=== PATIENT | male | born 1995 | race Caucasian/White ===

== ENCOUNTER 2017-01-26 19:43 | Emergency (ER) | payer OTHER ==
[2017-01-26] MEDS ORDERED: LORazepam 1 MG TAB PO ONE ×2 (19:56→21:04)
[2017-01-26] MEDS ORDERED: LORazepam 1 MG TAB ONE (19:56)
--- NOTE | 2017-01-26 20:04 | EDPHY ---
H & P Time Seen by Provider: 01/26/17 19:48 HPI/ROS: CHIEF COMPLAINT: Benzodiazepine withdrawal HISTORY OF PRESENT ILLNESS: 21-year-old male presents to the emergency department by private vehicle with a friend complaining of acute withdrawal symptoms. The patient states that he has been using Etizolam for his PTSD. He states that he takes a large amount of this medication. He has not been abusing this medicine. He states that he just did not want to do this anymore and he flushed all the medication down the toilet 24 hours ago. He now feels extremely anxious and feels like he is having a panic attack. He denies pain in his chest. He denies neck or back pain. Denies any reported trauma. REVIEW OF SYSTEMS: Constitutional: No fever, no chills. Eyes: No double or blurry vision. ENT: No sore throat. Respiratory: No cough, no shortness of breath. Cardiac: No chest pain. Gastrointestinal: No abdominal pain, vomiting or diarrhea. Genitourinary: No dysuria. Musculoskeletal: No neck or back pain. Skin: No rashes. Neurological: No headache. Past Medical/Surgical History: PTSD, anxiety Social History: Single Smoking Status: Never smoked Physical Exam: General Appearance: Alert, extremely anxious. Refusing to put gown on. Refusing to lie back in the bed. Friend at bedside. Eyes: Pupils equal and round. Extraocular motions are all intact. ENT: Mouth: Mucous membranes moist. Respiratory: No wheezing, rhonchi, or rales, lungs are clear to auscultation. Cardiovascular: Regular rate and rhythm. Tachycardic. Gastrointestinal: Abdomen is soft and nontender, no masses, no rebound or guarding, bowel sounds normal. Neurological: Alert and oriented x 3, cranial nerves II through XII grossly intact Skin: Warm and dry, no rashes. Musculoskeletal: Nontender to palpate along the cervical, thoracic or lumbar spine. Neck is supple. Extremities: Full range of motion and no peripheral edema. Psychiatric: Patient is oriented X 3, there is no agitation. Constitutional: Initial Vital Signs Temperature (C) 36.8 C 01/26/17 19:45 Heart Rate 130 H 01/26/17 19:45 Respiratory Rate 20 01/26/17 19:45 Blood Pressure 152/68 H 01/26/17 19:45 O2 Sat (%) 95 04/19/17 19:45 O2 Delivery Mode Room Air Allergies/Adverse Reactions: No Known Allergies Allergy (Unverified 01/26/17 19:47) Home Medications: Medication Instructions Recorded Diazepam 5 mg PO TID PRN #10 tab 01/26/17 Medical Decision Making ED Course/Re-evaluation: 21-year-old male presents to the emergency department extremely anxious and complaining of withdrawing from his Etizolam. The patient refused blood draw. He refused IV fluids. He refused any blood work. He is drinking water currently. He was given 2 mg of oral Ativan. The patient will be monitored in the emergency department. He was kept on a director of cardiac cath lab. EKG reveals sinus tachycardia without any other arrhythmia. Patient was monitored for over 3 hours in the emergency department. Again the patient refused IV fluids. His heart rate came down into the 90s after the medication and him drinking some water. The patient tells me that he has been taking the Etizolam for several months. I explained that he is at great risk for developing a seizure given the abrupt withdrawal from this medication. The patient will be discharged with Valium per his request and was encouraged to follow up with primary care provider tomorrow to recheck and to discuss possible slow taper of benzodiazepines. The patient understands that he should not be driving in a car. He should have somebody watch him closely and return if he a develops seizure or any other concerns. Differential Diagnosis: Including but not limited to substance abuse, withdrawal, electrolyte abnormality, arrhythmia - Data Points Medications Given: Discontinued Medications Diazepam (Valium 5 Mg Prepack#4) 1 btl TAKEHOME EDNOW ONE Stop: 01/26/17 22:40 Last Admin: 01/26/17 22:46 Dose: 1 btl Lorazepam (Ativan) 2 mg PO EDNOW ONE Stop: 01/26/17 19:57 Last Admin: 01/26/17 19:58 Dose: 2 mg Lorazepam (Ativan) 1 mg PO EDNOW ONE Stop: 01/26/17 21:05 Last Admin: 01/26/17 21:07 Dose: 1 mg Departure - Departure Disposition: Home, Routine, Self-Care Clinical Impression: Anxiety Benzodiazepine withdrawal Qualifiers: Complication of substance-induced condition: uncomplicated Qualified Code(s): F13.230 - Sedative, hypnotic or anxiolytic dependence with withdrawal, uncomplicated Condition: Good Instructions: Diazepam (By mouth), Generalized Anxiety Disorder (ED) Additional Instructions: Diazepam as needed for symptoms of withdrawal and anxiety. Follow up with [facility] tomorrow to recheck. You should not withdrawal abruptly from benzodiazepines. You are at great risk for seizure. You should not drive a car. Referrals: [facility],. [Clinic] - As per Instructions Prescriptions: Diazepam 5 mg PO TID PRN #10 tab PRN Reason: Spasms
--- NOTE | 2017-01-26 20:19 | CPEKG ---
Heart Rate: 129 RR Interval: 465 P-R Interval: 140 QRSD Interval: 90 QT Interval: 300 QTC Interval: 440 P [place]: 74 QRS [place]: 77 T Wave [place]: 10 EKG Severity - BORDERLINE ECG - EKG Impression: SINUS TACHYCARDIA EKG Impression: BORDERLINE Q WAVES IN INFERIOR LEADS EKG Impression: INFERIOR Q WAVES, PROBABLY NORMAL VARIATION Electronically Signed By: Jay Jay Skinner 27-Jan-2017 14:23:00
[2017-01-26 21:13] VITALS: PULSE 104
[2017-01-26] MEDS ORDERED: DIAZEPAM 5 MG PREPACK#4 BTL TAKEHOME ONE (22:39)
[2017-01-26 22:48] VITALS: BP 130/83; RESP 20; TEMP 98.6; O2SAT 97
== END 2017-01-26 22:48 | disposition home or self-care (01) ==
DX: F13.230 Sedative, hypnotic or anxiolytic dependence with withdrawal, uncomplicated (principal); F41.9 Anxiety disorder, unspecified

== ENCOUNTER 2017-02-03 21:44 | Emergency (ER) | payer OTHER ==
[2017-02-03 21:59] VITALS: TEMP 98.8
--- NOTE | 2017-02-04 00:19 | EDPHY ---
Mental Health General Smoking Status: Never smoked Time Patient Placed on Detainer: 23:00 Time of Transfer of Care: 01:[address] To [address]:: Aayush Narrative: CHIEF COMPLAINT: Anxiety, Valium overdose HISTORY OF PRESENT ILLNESS: 21-year-old male presents emergency department by ambulance after taking 50 mg of Valium during a panic attack tonight between 6: 00 p.m. an 8:00 p.m.. Patient states that he ate 10 mg of THC, he starting having a panic attack and took 10 tablets of his 5mg valium between 8pm-10pm. Patient told his girlfriend and she became worried and called 911. Patient denies suicidal ideations. Patient states he started using benzodiazepines 3 months ago and became addicted. He is working with his primary care doctor on a taper. Patient denies other drug use. REVIEW OF SYSTEMS: A comprehensive 10 point review of systems is otherwise negative aside from elements mentioned in the history of present illness. Physical Exam Gen: Alert and Oriented, NAD HEENT: PERRL, moist mucous membranes NECK: no meningismus CV: Tachycardic rate and regular rhythm PULM: CTAB, no wheezes ABDOMEN: soft, non tender to palpation, BS present BACK: No CVA tenderness NEURO: Neurologically grossly intact EXTREMITIES: normal appearing SKIN: no rash or break in skin on exposed skin PSYCH: answers questions appropriately, no suicidal ideation, homicidal ideation , auditory or visual hallucination. (Zulma Connor) Medical Decision Makin-Pt with continuous sat monitor on. He continues to drop his oxygen saturations to between 86 and 89%. Will continue to monitor. Dr. Looney assumed care of the patient at end of my shift. (Zulma Connor) 0100 care assumed by me pending improvement in patient's sedation. 0250 patient is easily arousable. Oxygen saturations 90% while sleeping. He is up and ambulating department. Will discharge to home. He is tierra for safety. This was not a suicide attempt (Brayan Looney) - Objective Vital Signs: Initial Vital Signs Temperature (C) 37.1 C 02/03/17 21:56 Heart Rate 140 H 02/03/17 21:56 Respiratory Rate 14 02/03/17 21:56 Blood Pressure 136/94 H 02/03/17 21:56 O2 Sat (%) 95 02/03/17 21:56 O2 Delivery Mode Room Air Allergies/Adverse Reactions: No Known Allergies Allergy (Unverified 01/26/17 19:47) Home Medications: Medication Instructions Recorded Diazepam 5 mg PO TID PRN #10 tab 01/26/17 Adderall 20 mg (*) 02/03/17 Clonidine 02/03/17 Departure - Departure Disposition: Home, Routine, Self-Care Clinical Impression: Anxiety Valium overdose Qualifiers: Encounter type: initial encounter Injury intent: accidental or unintentional Qualified Code(s): T42.4X1A - Poisoning by benzodiazepines, accidental ( unintentional), initial encounter Condition: Good Instructions: Benzodiazepine Abuse (ED), Anxiety (ED) Additional Instructions: Follow-up with your primary care doctor on Tuesday. Return to the emergency department for any questions or concerns, take your medications as prescribed. Referrals: [facility] [Other] - As per Instructions
[2017-02-04 02:49] VITALS: BP 112/66; PULSE 88; RESP 12; O2SAT 90
== END 2017-02-04 02:48 | disposition home or self-care (01) ==
LOC: EDUNIT#
DX: F41.9 Anxiety disorder, unspecified (principal); T42.4X1A Poisoning by benzodiazepines, accidental (unintentional), initial encounter

== ENCOUNTER 2017-05-02 18:28 | Emergency (ER) | payer OTHER ==
[2017-05-02 18:42] VITALS: BP 140/78; PULSE 104; RESP 16; TEMP 99.1; O2SAT 95
[2017-05-02] MEDS ORDERED: ONDANSETRON DISINTEGRATING 4 MG TAB PO ONE (19:59)
--- NOTE | 2017-05-02 20:02 | EDPHY ---
H & P Stated Complaint: Girlfriend thinks pt is dehydrated;?overmedicated Time Seen by Provider: 05/02/17 19:57 HPI/ROS: CHIEF COMPLAINT: Dehydration HISTORY OF PRESENT ILLNESS: The patient is a 21-year-old man who is brought in by his girlfriend concerned for dehydration. He states that he went on a Yoo of amphetamines for the last week and today he dose not feel like eating or drinking. He has not vomited. He has not had a fever. He denies abdominal pain. His girlfriend was concerned because he not feel like drinking or eating. He states that he was able to drink a couple of cups of water earlier and keep it down but just does not have a desire to drink more. He does not have dry eyes or dry mouth. REVIEW OF SYSTEMS: Constitutional: denies: chills, fever, recent illness, recent injury EENTM: denies: blurred vision, double vision, nose congestion Respiratory: denies: cough, shortness of breath Cardiac: denies: chest pain, irregular heart rate, lightheadedness, palpitations Gastrointestinal/Abdominal: denies: abdominal pain, diarrhea, nausea, vomiting, blood streaked stools Genitourinary: denies: dysuria, frequency, hematuria, pain Musculoskeletal: denies: joint pain, muscle pain Skin: denies: lesions, rash, jaundice, bruising Neurological: denies: headache, numbness, paresthesia, tingling, dizziness, weakness Hematologic/Lymphatic: denies: blood clots, easy bleeding, easy bruising Immunologic/allergic: denies: HIV/AIDS, transplant EXAM: GENERAL: Well-appearing, well-nourished and in no acute distress. HEAD: Atraumatic, normocephalic. EYES: Pupils equal round and reactive to light, extraocular movements intact, sclera anicteric, conjunctiva are normal. ENT: TMs normal, nares patent, oropharynx clear without exudates. Moist mucous membranes. NECK: Normal range of motion, supple without lymphadenopathy or JVD. LUNGS: Breath sounds clear to auscultation bilaterally and equal. No wheezes rales or rhonchi. HEART: Regular rate and rhythm without murmurs, rubs or gallops. ABDOMEN: Soft, nontender, normoactive bowel sounds. No guarding, no rebound. No masses appreciated. BACK: No CVA tenderness, no spinal tenderness, step-offs or deformities EXTREMITIES: Normal range of motion, no pitting or edema. No clubbing or cyanosis. NEUROLOGICAL: Cranial nerves II through XII grossly intact. Normal speech, normal gait. 5/5 strength, normal movement in all extremities, normal sensation PSYCH: Normal mood, normal affect. SKIN: Warm, dry, normal turgor, no visible rashes or lesions. Source: Patient Exam Limitations: No limitations - Personal History Current Tetanus Diphtheria and Acellular Pertussis (TDAP): Yes - Medical/Surgical History Hx Asthma: No Hx Chronic Respiratory Disease: No Hx Diabetes: No Hx Cardiac Disease: No Hx Renal Disease: No Hx Cirrhosis: No Hx Alcoholism: No Hx HIV/AIDS: No Hx Splenectomy or Spleen Trauma: No Other PMH: adhd. anxiety/psych - Family History Significant Family History: No pertinent family hx - Social History Smoking Status: Never smoked Alcohol Use: None Drug Use: None Constitutional: Initial Vital Signs Temperature (C) 37.3 C 05/02/17 18:39 Heart Rate 104 H 05/02/17 18:39 Respiratory Rate 16 05/02/17 18:39 Blood Pressure 140/78 H 05/02/17 18:39 O2 Sat (%) 95 05/02/17 18:39 O2 Delivery Mode Room Air Allergies/Adverse Reactions: No Known Allergies Allergy (Verified 05/02/17 18:39) Home Medications: Medication Instructions Recorded Dextroamphetamine/Amphetamine 10 mg PO 05/02/17 [Dextroamp-Amphet ER 10 mg Cap] Diazepam [Valium 5 MG (*)] 7.5 mg PO 05/02/17 MIRTAZAPINE [Remeron 7.5 mg] 7.5 mg PO HS 05/02/17 clonIDINE [Catapres (*)] 0.1 mg PO 05/02/17 Medical Decision Making ED Course/Re-evaluation: Patient is well appearing clinically and does not appear dehydrated. States that thinking about drinking water makes and slightly nauseous. I will treat him with Zofran and oral hydration. We will observe. Differential Diagnosis: Partial list of the Differential diagnosis considered include but were not limited to; dehydration, anxiety, withdrawal, overdose and although unlikely based on the history and physical exam, I also considered electrolyte abnormality, arrhythmia, abdominal catastrophe. I discussed these differential diagnoses and the plan with the patient as well as the usual and expected course. The patient understands that the diagnosis is provisional and that in medicine we are not always correct and that further workup is often warranted. Usual and customary warnings were given. All of the patient's questions were answered. The patient was instructed to return to the emergency department should the symptoms at all worsen or return, otherwise to followup with the physician as we discussed. - Data Points Medications Given: Discontinued Medications Ondansetron HCl (Zofran Odt) 4 mg PO EDNOW ONE Stop: 05/02/17 20:00 Last Admin: 05/02/17 20:06 Dose: 4 mg Departure - Departure Disposition: Home, Routine, Self-Care Clinical Impression: Dehydration, Anxiety Condition: Fair Instructions: Dehydration (ED), Anxiety (ED) Referrals: [facility] [Other] - As per Instructions
== END 2017-05-02 20:22 | disposition home or self-care (01) ==
DX: E86.0 Dehydration (principal); F41.9 Anxiety disorder, unspecified

== ENCOUNTER 2017-09-08 22:25 | Emergency (ER) | payer OTHER ==
[2017-09-08 22:30] VITALS: TEMP 98.1
[2017-09-08] MEDS ORDERED: HALOPERIDOL LACT 5 MG/ML INJ IVP ONE (22:47)
[2017-09-08] MEDS ORDERED: NS 1,000 ML IV ONE (22:48)
--- NOTE | 2017-09-08 22:51 | EDPHY ---
H & P Stated Complaint: c/o abd pain/n/v x 30 mins Time Seen by Provider: 09/08/17 22:40 HPI/ROS: Chief Complaint: Abdominal pain, nausea, vomiting HPI: 21-year-old male had the sudden onset of right abdominal pain with associated nausea vomiting and diarrhea 30 min ago. Prior to that he was feeling completely normal. No coffee grounds or blood in his emesis. No dark tarry stools or blood. No fevers or chills. No chest pain or shortness of breath. Has a history of some nausea in the past associated with benzodiazepine withdrawal but has not taken benzodiazepines for about 4 months. Denies any other drug use or ingestions. No recent trauma or injuries. No urinary urgency or frequency. ROS: 10 point Review of Systems is negative except as noted in the HPI. PMH: Denies Social History: No smoking, no alcohol, no recreational drug use Family History: non-contributory Physical Exam: Gen: Awake, Alert, No Distress HEENT: Nose: no rhinorrhea Eyes: PERRLA, EOMI Mouth: Moist mucosa Neck: Supple, no JVD Chest: nontender, lungs clear to auscultation Heart: S1, S2 normal, no murmur Abd: Soft, mild diffuse tenderness, no guarding Back: no CVA tenderness, no midline tenderness Ext: no edema, non-tender Skin: no rash Neuro: CN II-XII intact, Sensation grossly intact, Strength 5/5 in bilateral upper and lower extremities - Medical/Surgical History Hx Asthma: No Hx Chronic Respiratory Disease: No Hx Diabetes: No Hx Cardiac Disease: No Hx Renal Disease: No Hx Cirrhosis: No Hx Alcoholism: No Hx HIV/AIDS: No Hx Splenectomy or Spleen Trauma: No Other PMH: adhd. anxiety/psych - Social History Smoking Status: Never smoked Constitutional: Initial Vital Signs Temperature (C) 36.7 C 09/08/17 22:28 Heart Rate 128 H 09/08/17 22:28 Respiratory Rate 22 H 09/08/17 22:28 Blood Pressure 118/95 H 09/08/17 22:28 O2 Sat (%) 99 09/08/17 22:28 O2 Delivery Mode Room Air Allergies/Adverse Reactions: No Known Allergies Allergy (Verified 09/08/17 22:30) Home Medications: Medication Instructions Recorded Dextroamphetamine/Amphetamine 10 mg PO 05/02/17 [Dextroamp-Amphet ER 10 mg Cap] Diazepam [Valium 5 MG (*)] 7.5 mg PO 05/02/17 MIRTAZAPINE [Remeron 7.5 mg] 7.5 mg PO HS 05/02/17 clonIDINE [Catapres (*)] 0.1 mg PO 05/02/17 Medical Decision Making - Diagnostics Imaging Results: Imaging Impressions Abdomen CT 09/08/17 23:07 Impression: Negative for appendicitis. I telephoned results to Dr. Brayan Galvan at 2340 hours. ED Course/Re-evaluation: CT scan negative for acute appendicitis. Patient does have leukocytosis. Symptoms consistent with possible terminal ileitis. Will reassess after hydration and medications. 0045 patient is not in his bed. He has gone from the department AWOL. - Data Points Laboratory Results: Laboratory Results 09/08/17 22:40 09/08/17 22:40 09/09/17 09/08/17 09/08/17 00:00 22:40 22:40 WBC 15.87 10^3/uL H 10^3/uL (3.80-9.50) RBC 6.32 10^6/uL 10^6/uL (4.40-6.38) Hgb 18.2 g/dL H g/dL (13.7-17.5) Hct 55.3 % H % (40.0-51.0) MCV 87.5 fL fL (81.5-99.8) MCH 28.8 pg pg (27.9-34.1) MCHC 32.9 g/dL g/dL (32.4-36.7) RDW 17.9 % H % (11.5-15.2) Plt Count 311 10^3/uL 10^3/uL (150-400) MPV 9.7 fL fL (8.7-11.7) Neut % (Auto) 84.5 % H % (39.3-74.2) Lymph % (Auto) 7.6 % L % (15.0-45.0) [place] % (Auto) 6.4 % % (4.5-13.0) Eos % (Auto) 0.7 % % (0.6-7.6) Baso % (Auto) 0.4 % % (0.3-1.7) Nucleat RBC Rel Count 0.0 % % (0.0-0.2) Absolute Neuts (auto) 13.40 10^3/uL H 10^3/uL (1.70-6.50) Absolute Lymphs (auto) 1.21 10^3/uL 10^3/uL (1.00-3.00) Absolute Monos (auto) 1.02 10^3/uL H 10^3/uL (0.30-0.80) Absolute Eos (auto) 0.11 10^3/uL 10^3/uL (0.03-0.40) Absolute Basos (auto) 0.06 10^3/uL 10^3/uL (0.02-0.10) Absolute Nucleated RBC 0.00 10^3/uL 10^3/uL (0-0.01) Immature Gran % 0.4 % % (0.0-1.1) Immature Gran # 0.07 10^3/uL 10^3/uL (0.00-0.10) Sodium 141 mEq/L mEq/L (134-144) Potassium 4.0 mEq/L mEq/L (3.5-5.2) Chloride 98 mEq/L mEq/L (97-110) Carbon Dioxide 24 mEq/l mEq/l (22-31) Anion Gap 19 mEq/L H mEq/L (8-16) BUN 13 mg/dL mg/dL (7-23) Creatinine 1.4 mg/dL H mg/dL (0.7-1.3) Estimated GFR > 60 Glucose 91 mg/dL mg/dL (70-100) Calcium 9.9 mg/dL mg/dL (8.5-10.4) Total Bilirubin 1.1 mg/dL mg/dL (0.1-1.4) AST 47 IU/L IU/L (17-59) ALT 50 IU/L IU/L (21-72) Alkaline Phosphatase 59 IU/L IU/L (38-126) Total Protein 8.1 g/dL g/dL (6.3-8.2) Albumin 4.8 g/dL g/dL (3.5-5.0) Lipase 115 IU/L IU/L (23-300) Urine Color YELLOW Urine Appearance CLEAR Urine pH 6.0 (5.0-7.5) Ur Specific [place] > 1.035 H (1.002-1.030) Urine Protein NEGATIVE (NEGATIVE) Urine Ketones 1+ H (NEGATIVE) Urine Blood NEGATIVE (NEGATIVE) Urine Nitrate NEGATIVE (NEGATIVE) Urine Bilirubin NEGATIVE (NEGATIVE) Urine Urobilinogen NEGATIVE EU EU (0.2-1.0) Ur Leukocyte Esterase NEGATIVE (NEGATIVE) Urine Glucose NEGATIVE (NEGATIVE) Medications Given: Discontinued Medications Diphenhydramine HCl (Benadryl Injection) 50 mg IVP EDNOW ONE Stop: 09/08/17 23:07 Last Admin: 09/08/17 23:11 Dose: 50 mg Fentanyl (Sublimaze) 50 mcg IVP EDNOW ONE Stop: 09/08/17 23:08 Last Admin: 09/08/17 23:10 Dose: 50 mcg Haloperidol Lactate (Haldol Injection) 2.5 mg IVP EDNOW ONE Stop: 09/08/17 22:48 Last Admin: 09/08/17 22:57 Dose: 2.5 mg Sodium Chloride (Ns) 1,000 mls @ 0 mls/hr IV ONCE ONE; Wide Open PRN Reason: Protocol Stop: 09/08/17 22:49 Last Admin: 09/08/17 22:56 Dose: 1,000 mls Departure - Departure Disposition: Against Medical Advice Clinical Impression: Abdominal pain Condition: Good Referrals: NONE *PRIMARY CARE P,. [Primary Care Provider] - As per Instructions
[2017-09-08 22:53] LABS: % IMMATURE GRANULYOCYTES 0.4 % (0.0-1.1); ABSOLUTE IMMATURE GRANULOCYTES 0.07 10^3/uL (0.00-0.10); ADD DIFF? NO; ADD MORPH? NO; ADD SCAN? NO; ATYPICAL LYMPHOCYTE FLAG 0 (0-99); FRAGMENT RBC FLAG 0 (0-99); HEMATOCRIT 55.3 % (40.0-51.0); HEMOGLOBIN 18.2 g/dL (13.7-17.5); LEFT SHIFT FLG 0 (0-99); LIPEMIA HEMOLYSIS FLAG 80 (0-99); MEAN CELL HEMOGLOBIN 28.8 pg (27.9-34.1); MEAN CELL HEMOGLOBIN CONCENTR. 32.9 g/dL (32.4-36.7); MEAN CELL VOLUME 87.5 fL (81.5-99.8); MEAN PLATELET VOLUME 9.7 fL (8.7-11.7); PLATELET CLUMPS FLAG 0 (0-99); PLATELET COUNT 311 10^3/uL (150-400); RED BLOOD CELL COUNT 6.32 10^6/uL (4.40-6.38); RED CELL DISTRIBUTION WIDTH 17.9 % (11.5-15.2)
[2017-09-08 23:05] LABS: ALANINE AMINOTRANSFERASE 50 IU/L (21-72); ALBUMIN 4.8 g/dL (3.5-5.0); ALKALINE PHOSPHATASE 59 IU/L (38-126); ANION GAP 19 mEq/L (8-16); ASPARTATE AMINOTRANSFERASE 47 IU/L (17-59); BILIRUBIN,TOTAL 1.1 mg/dL (0.1-1.4); CALCIUM 9.9 mg/dL (8.5-10.4); CARBON DIOXIDE 24 mEq/l (22-31); CHLORIDE 98 mEq/L (97-110); CREATININE 1.4 mg/dL (0.7-1.3); GLOMERULAR FILTRATION RATE > 60; GLUCOSE 91 mg/dL (70-100); SODIUM 141 mEq/L (134-144); TOTAL PROTEIN 8.1 g/dL (6.3-8.2)
[2017-09-08] MEDS ORDERED: fentaNYL 100 MCG/2 ML INJ IVP ONE (23:07)
[2017-09-08] MEDS ORDERED: IOPAMIDOL (ISOVUE-300) 100 ML BTL ONE (23:09)
[2017-09-09 00:11] LABS: COLOR YELLOW; LEUKOCYTE ESTERASE,URINE NEGATIVE (NEGATIVE); NITRITE,URINE NEGATIVE (NEGATIVE)
[2017-09-09 00:33] VITALS: BP 100/59; RESP 16
[2017-09-09 01:09] VITALS: PULSE 88; O2SAT 97
== END 2017-09-09 00:45 | disposition left against medical advice (07) ==
DX: R10.84 Generalized abdominal pain (principal); E86.9 Volume depletion, unspecified
CPT/HCPCS: 96374; J1200; J3010; Q9967

== ENCOUNTER 2017-12-14 17:22 | Emergency (ER) | payer OTHER ==
[2017-12-14] MEDS ORDERED: LORazepam 2 MG/ML INJ IVP ONE (19:03)
[2017-12-14] MEDS ORDERED: NS 1,000 ML IV ONE (19:03)
[2017-12-14] MEDS ORDERED: DIAZEPAM 5 MG/ML 1 ML SYR IVP ONE (19:44)
[2017-12-14 19:45] LABS: PLATELET COUNT 343 10^3/uL (150-400)
--- NOTE | 2017-12-14 20:18 | EDPHY ---
H & P Smoking Status: Never smoked Time Seen by Provider: 12/14/17 18:11 HPI/ROS: CHIEF COMPLAINT: Anxiety, insomnia HISTORY OF PRESENT ILLNESS: 22-year-old male presents to the emergency department with severe anxiety. The patient has a known history of anxiety. He stopped all of his medications about 4 months ago. Over last 3 days he has had such severe anxiety that he has been unable to sleep now over the last 3 days. 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 He is having "flashbacks" which is causing him to be extremely stressed. The patient does occasionally have auditory hallucinations. Denies visual hallucinations. Denies suicidal or homicidal ideation. He states "I am terrified of the dark and to go to sleep at night because I think I am going to stop breathing and ". Patient denies substance abuse or alcohol. He has not established care with a therapist or counselor. REVIEW OF SYSTEMS: Constitutional: No fever, no chills. Eyes: No double or blurry vision. ENT: No sore throat. Respiratory: No cough, no shortness of breath. Cardiac: No chest pain. Gastrointestinal: No abdominal pain, vomiting or diarrhea. Genitourinary: No dysuria. Musculoskeletal: No neck or back pain. Skin: No rashes. Neurological: No headache. (Elizabeth Pool) Past Medical/Surgical History: Anxiety, PTSD, attention deficit hyperactivity disorder (Elizabeth Pool M) Social History: Single (Elizabeth Pool) Physical Exam: General Appearance: Alert, anxious. Slightly tremulous. Girlfriend at bedside Eyes: Pupils equal and round. Extraocular motions are all intact. ENT: Mouth: Mucous membranes moist. Respiratory: No wheezing, rhonchi, or rales, lungs are clear to auscultation. Cardiovascular: Regular rate and rhythm. Gastrointestinal: Abdomen is soft and nontender, no masses, no rebound or guarding, bowel sounds normal. Neurological: Alert and oriented x 3, cranial nerves II through XII grossly intact Skin: Warm and dry, no rashes. Musculoskeletal: Nontender to palpate along the cervical, thoracic or lumbar spine. Neck is supple. Extremities: Full range of motion and no peripheral edema. Psychiatric: Patient is oriented X 3, there is no agitation. (CorineElizabeth M) Constitutional: Initial Vital Signs Temperature (C) 37 C 12/14/17 17:33 Heart Rate 98 12/14/17 17:33 Respiratory Rate 18 12/14/17 17:33 Blood Pressure 162/80 H 12/14/17 17:33 O2 Sat (%) 94 12/14/17 17:33 O2 Delivery Mode Room Air Allergies/Adverse Reactions: haloperidol [From Haldol] Allergy (Verified 12/14/17 17:33) Home Medications: Medication Instructions Recorded NK [No Known Home Meds] 12/14/17 Medical Decision Making ED Course/Re-evaluation: 22-year-old male presents to the emergency department with severe anxiety. 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 He has not been sleeping for the last 3 days. He has a history of PTSD, attention deficit hyperactivity disorder, and anxiety. He has been off of all of his medications for last 4 months. The patient denies suicidal or homicidal ideation. When the patient is medically cleared, he will be evaluated by mental health. Patient was given 5 mg of p. O. Valium per his request since he tolerates this better than lorazepam. (Elizabeth Pool) 1209: Patient has been seen evaluated by mental health. Dr. Mckenna has been consult. Patient contracts for safety. They would like to discharge him. He is comfortable this plan he has been given resources in follow-up. Return precautions discussed with him. (Alok Bryan) Differential Diagnosis: Depression including functional and major depression, situational depression, medication side effect, drugs and alcohol abuse. (Elizabeth Pool) Other Provider: The patient will be turned over to Dr. Bryan at shift change pending psychiatric evaluation. (Mesfin Fraire) Care Turn Over: Care will be turned over to Dr. Alok Bryan for disposition and plan. (Elizabeth Pool) - Data Points Laboratory Results: Laboratory Results 12/14/17 19:35 12/14/17 19:35 12/14/17 12/14/17 12/14/17 19:35 19:35 19:35 WBC 10.56 10^3/uL H 10^3/uL (3.80-9.50) RBC 5.99 10^6/uL 10^6/uL (4.40-6.38) Hgb 17.3 g/dL g/dL (13.7-17.5) Hct 50.7 % % (40.0-51.0) MCV 84.6 fL fL (81.5-99.8) MCH 28.9 pg pg (27.9-34.1) MCHC 34.1 g/dL g/dL (32.4-36.7) RDW 14.7 % % (11.5-15.2) Plt Count 343 10^3/uL 10^3/uL (150-400) MPV 9.5 fL fL (8.7-11.7) Neut % (Auto) 63.3 % % (39.3-74.2) Lymph % (Auto) 21.8 % % (15.0-45.0) [place] % (Auto) 10.8 % % (4.5-13.0) Eos % (Auto) 2.5 % % (0.6-7.6) Baso % (Auto) 0.7 % % (0.3-1.7) Nucleat RBC Rel Count 0.0 % % (0.0-0.2) Absolute Neuts (auto) 6.70 10^3/uL H 10^3/uL (1.70-6.50) Absolute Lymphs (auto) 2.30 10^3/uL 10^3/uL (1.00-3.00) Absolute Monos (auto) 1.14 10^3/uL H 10^3/uL (0.30-0.80) Absolute Eos (auto) 0.26 10^3/uL 10^3/uL (0.03-0.40) Absolute Basos (auto) 0.07 10^3/uL 10^3/uL (0.02-0.10) Absolute Nucleated RBC 0.00 10^3/uL 10^3/uL (0-0.01) Immature Gran % 0.9 % % (0.0-1.1) Immature Gran # 0.09 10^3/uL 10^3/uL (0.00-0.10) Sodium 139 mEq/L mEq/L (135-145) Potassium 4.7 mEq/L mEq/L (3.5-5.2) Chloride 102 mEq/L mEq/L (97-110) Carbon Dioxide 22 mEq/l mEq/l (22-31) Anion Gap 15 mEq/L mEq/L (8-16) BUN 7 mg/dL mg/dL (7-23) Creatinine 0.9 mg/dL mg/dL (0.7-1.3) Estimated GFR > 60 Glucose 102 mg/dL H mg/dL (70-100) Calcium 9.5 mg/dL mg/dL (8.5-10.4) TSH 1.460 uIU/mL uIU/mL (0.465-4.680) Urine Opiates Screen NEGATIVE (NEGATIVE) Urine Barbiturates NEGATIVE (NEGATIVE) Ur Phencyclidine Scrn NEGATIVE (NEGATIVE) Ur Amphetamine Screen NEGATIVE (NEGATIVE) U Benzodiazepines Scrn NEGATIVE (NEGATIVE) Urine Cocaine Screen NEGATIVE (NEGATIVE) U Marijuana (THC) Screen NEGATIVE (NEGATIVE) Ethyl Alcohol < 10 mg/dL mg/dL (0-10) Medications Given: Discontinued Medications Diazepam (Valium) 5 mg IVP EDNOW ONE Stop: 12/14/17 19:45 Last Admin: 12/14/17 21:20 Dose: Not Given Diazepam (Valium) 5 mg PO EDNOW ONE Stop: 12/14/17 20:57 Last Admin: 12/14/17 21:00 Dose: 5 mg Sodium Chloride (Ns) 1,000 mls @ 0 mls/hr IV ONCE ONE PRN Reason: Wide Open Stop: 12/14/17 19:04 Last Admin: 12/14/17 18:30 Dose: 1,000 mls Lorazepam (Ativan Injection) 1 mg IVP EDNOW ONE Stop: 12/14/17 19:04 Last Admin: 12/14/17 21:20 Dose: Not Given Departure - Departure Disposition: Home, Routine, Self-Care Clinical Impression: Anxiety Insomnia Qualifiers: Insomnia type: unspecified Qualified Code(s): G47.00 - Insomnia, unspecified Condition: Good Instructions: Insomnia (ED), Anxiety (ED) Additional Instructions: 1. Follow up with resources you were given today. 2. Return emergency room if you have any worsening symptoms questions or concerns. Referrals: NONE *PRIMARY CARE P,. [Primary Care Provider] - As per Instructions
[2017-12-14] MEDS ORDERED: DIAZEPAM 5 MG TAB PO ONE (20:56)
[2017-12-14] MEDS ORDERED: DIAZEPAM 5 MG TAB ONE (20:57)
[2017-12-15] MEDS ORDERED: DIAZEPAM 5 MG TAB PO ONE (00:15)
[2017-12-15 00:19] VITALS: BP 155/94; PULSE 94; RESP 16; TEMP 98.6; O2SAT 95
== END 2017-12-15 00:21 | disposition home or self-care (01) ==
PROC: GZ11ZZZ Psychological Tests, Personality and Behavioral (ICD-10-PCS; principal; 2017-12-14)
DX: F41.9 Anxiety disorder, unspecified (principal); G47.00 Insomnia, unspecified
CPT/HCPCS: 80305; G0480; J2060

== ENCOUNTER 2018-06-20 15:00 | Emergency (ER) | payer OTHER ==
[2018-06-20 15:29] VITALS: BP 123/72
--- NOTE | 2018-06-20 15:37 | EDPHY ---
H & P Stated Complaint: PS Time Seen by Provider: 06/20/18 15:26 HPI/ROS: CHIEF COMPLAINT: Benzodiazepine abuse HISTORY OF PRESENT ILLNESS: The patient is a 22-year-old man who was brought by police for concern of overdose on benzodiazepines. The patient states that he was reporting to the police department for a warrant on traffic violation that was long overdue. He suspected that he would be incarcerated and before doing this wanted to take atezolam which is a benzodiazepine the ordered through the Internet. He states that he just wanted to be "out of it while he was in longterm". He did make some comments however to coworkers that he would be "gone for a while". One of the coworkers became concerned called police. Severity: Moderate Modifying factors: None REVIEW OF SYSTEMS: Constitutional: denies: chills, fever, recent illness, recent injury EENTM: denies: blurred vision, double vision, nose congestion Respiratory: denies: cough, shortness of breath Cardiac: denies: chest pain, irregular heart rate, lightheadedness, palpitations Gastrointestinal/Abdominal: denies: abdominal pain, diarrhea, nausea, vomiting, blood streaked stools Genitourinary: denies: dysuria, frequency, hematuria, pain Musculoskeletal: denies: joint pain, muscle pain Skin: denies: lesions, rash, jaundice, bruising Neurological: denies: headache, numbness, paresthesia, tingling, dizziness, weakness Hematologic/Lymphatic: denies: blood clots, easy bleeding, easy bruising Immunologic/allergic: denies: HIV/AIDS, transplant 10 systems reviewed and negative except as noted EXAM: GENERAL: Well-appearing, well-nourished and in no acute distress. HEAD: Atraumatic, normocephalic. EYES: Pupils equal round and reactive to light, extraocular movements intact, sclera anicteric, conjunctiva are normal. ENT: TMs normal, nares patent, oropharynx clear without exudates. Moist mucous membranes. NECK: Normal range of motion, supple without lymphadenopathy or JVD. LUNGS: Breath sounds clear to auscultation bilaterally and equal. No wheezes rales or rhonchi. HEART: Regular rate and rhythm without murmurs, rubs or gallops. ABDOMEN: Soft, nontender, normoactive bowel sounds. No guarding, no rebound. No masses appreciated. BACK: No CVA tenderness, no spinal tenderness, step-offs or deformities EXTREMITIES: Normal range of motion, no pitting or edema. No clubbing or cyanosis. NEUROLOGICAL: Cranial nerves II through XII grossly intact. Normal speech, normal gait. 5/5 strength, normal movement in all extremities, normal sensation , normal reflexes PSYCH: Normal mood, normal affect. Answers all questions appropriately SKIN: Warm, dry, normal turgor, no visible rashes or lesions. Source: Patient, Police Exam Limitations: No limitations - Personal History Current Tetanus/Diphtheria Vaccine: Yes - Medical/Surgical History Hx Asthma: No Hx Chronic Respiratory Disease: No Hx Diabetes: No Hx Cardiac Disease: No Hx Renal Disease: No Hx Cirrhosis: No Hx Alcoholism: No Hx HIV/AIDS: No Hx Splenectomy or Spleen Trauma: No Other PMH: adhd. anxiety/psych - Family History Significant Family History: No pertinent family hx - Social History Smoking Status: Never smoked Alcohol Use: None Drug Use: None Constitutional: Initial Vital Signs Temperature (C) 37.0 C 06/20/18 15:06 Heart Rate 142 H 06/20/18 15:06 Respiratory Rate 18 06/20/18 15:06 Blood Pressure 123/72 H 06/20/18 15:06 O2 Sat (%) 94 06/20/18 15:06 O2 Delivery Mode Room Air Allergies/Adverse Reactions: haloperidol [From Haldol] Allergy (Verified 06/20/18 15:29) Home Medications: Medication Instructions Recorded Testosterone IM [Testosterone 200 mg IM Q7D 05/01/18 100mg/ml IM inj (*)] Acetaminophen [Tylenol 325mg (*)] 650 mg PO Q4HRS PRN tab 05/02/18 Cephalexin [Keflex (*)] 500 mg PO QID #28 cap 05/02/18 Medical Decision Making ED Course/Re-evaluation: The patient does not meet criteria for hold. He absolutely denies suicidality. He is thinking rationally. I spoke with his co-worker who called the police. The co-worker was concerned because he had been told the patient had taken a large amount of benzodiazepine. He was also concerned because the patient recently lost his job. He confirms that the patient did not make overt suicidal statements. He states that he can pick the patient up and be available for him. I have Mental Health meet with the patient and provide him with resources and crisis line number etc. Patient continues to deny suicidality and is eager to go home. He does not meet criteria for M1 hold and have lifted his hold. Differential Diagnosis: Partial list of the Differential diagnosis considered include but were not limited to; benzodiazepine abuse, alcohol abuse, depression, suicidality and although unlikely based on the history and physical exam, I also considered head injury, infection. I discussed these differential diagnoses and the plan with the patient as well as the usual and expected course. The patient understands that the diagnosis is provisional and that in medicine we are not always correct and that further workup is often warranted. Usual and customary warnings were given. All of the patient's questions were answered. The patient was instructed to return to the emergency department should the symptoms at all worsen or return, otherwise to followup with the physician as we discussed. Departure - Departure Disposition: Home, Routine, Self-Care Clinical Impression: Polysubstance abuse Condition: Fair Instructions: Polysubstance Abuse (ED) Referrals: Patient,NotPresent [Unknown] - As per Instructions Peng Brantley MD [Medical Doctor] - As per Instructions
--- NOTE | 2018-06-20 16:51 | ASMTLCPROG ---
Notes Note: Notes: Tlc Consult/referrals requested. Pt denied any SI/plan/intent. Pt identified losing job, possibility of going to skilled nursing and and argument with girlfriend as stressors that brought him to the Ed. Pt stated he took a bunch of Xanax to make skilled nursing more tolerable not to end his life. Pt stated he was off his medications and asked if our Ed DrAlcira would prescribed him a weeks supply until he could get in to see a doc. Pt stated he goes to the [facility] and see's Mag Carbajal but stated she was unwilling to prescribe him his meds the last time he saw her. Pt was given referrals to psychiatrist in [facility] and given [place] Crisis number. Date Signed: 06/20/2018 04:51 PM Electronically Signed By:Carolann Cheatham
== END 2018-06-20 16:06 | disposition home or self-care (01) ==
LOC: EDUNIT#
DX: F19.10 Other psychoactive substance abuse, uncomplicated (principal)

== ENCOUNTER 2018-09-27 20:33 | Observation (INO) | payer OTHER ==
[2018-09-27] MEDS ORDERED: ceFAZolin 2 GM/DEXTROSE 100 ML IV ONE (20:55)
[2018-09-27] MEDS ORDERED: NS 2,000 ML IV ONE (21:04)
--- NOTE | 2018-09-27 21:04 | EDPHY ---
H & P Stated Complaint: poss L gluteal infection,fever-like symptoms.Tylenol ibupropen GRA[employer] Time Seen by Provider: 09/27/18 20:46 HPI/ROS: CHIEF COMPLAINT: "I think I have cellulitis" HISTORY OF PRESENT ILLNESS: 22-year-old immunocompetent male with up-to-date tetanus, prior history of left buttock cellulitis, hospital admission with sepsis in April 2018, returns to the ER with development of same symptoms however is concerned because the relatively rapid onset. He previously notes that the erythema developed over 3 days. He notes that he has had onset of progressive erythema to the left buttock since this morning. No crepitus. He also is complaining of fever and flu-like symptoms. He is visiting from [place]. Prior hospital admission patient had been administering test Dr. Injections into his buttock, now administering into his deltoid. Denies: Testicular scrotal pain, abdominal pain, nausea, vomiting REVIEW OF SYSTEMS: 10 systems reviewed and negative with the exception of the elements mentioned in the history of present illness PAST MEDICAL & SURGICAL HISTORY: Prior history of left buttock cellulitis. Hypogonadism SOCIAL HISTORY:Visiting from [place] PHYSICAL EXAM (Prior to examination, patient consented to physical exam, hands were washed and my usual and customary physical exam procedures followed) 1) GENERAL: Well-developed, well-nourished, alert and oriented. Appears nontoxic. 2) HEAD: Normocephalic, atraumatic 3) HEENT: Pupils equal, round, reactive to light bilaterally. Sclera anicteric. 4) NECK: Full range of motion, no meningeal signs. 5) LUNGS: Clear auscultation bilaterally, no wheezes, no rhonchi, no retractions. 6) HEART: Regular rate and rhythm, no murmur, no heave, no gallop. 7) ABDOMEN: No guarding, no rebound, no focal tenderness, negative McBurney's, negative Stanley's, negative Rovsing's, negative peritoneal sign, 8) MUSCULOSKELETAL: Left lower extremity: Diffuse erythema, induration, increased warmth and pain to the left buttock with no extension to the perianal or perineal region. No crepitus. No vesicles. No central lesion. Moving all extremities, no focal areas of tenderness, no obvious trauma. No peripheral edema or discoloration. 9) BACK: No CVA tenderness, no midline vertebral tenderness, no fluctuance, no step-off, no obvious trauma, no visual or palpable abnormality. 10) SKIN: No rash, no petechiae. 11) Psychiatric: Patient is oriented X 3, there is no agitation. DIFFERENTIAL DIAGNOSIS: In no particular order including but not limited to cellulitis, abscess, necrotizing fasciitis, Tashia's gangrene - Personal History Current Tetanus/Diphtheria Vaccine: Unsure Current Tetanus Diphtheria and Acellular Pertussis (TDAP): Unsure - Medical/Surgical History Hx Asthma: No Hx Chronic Respiratory Disease: No Hx Diabetes: No Hx Cardiac Disease: No Hx Renal Disease: No Hx Cirrhosis: No Hx Alcoholism: No Hx HIV/AIDS: No Hx Splenectomy or Spleen Trauma: No Other PMH: adhd. anxiety/psych. sleep apnea - Social History Smoking Status: Never smoked Constitutional: Initial Vital Signs Temperature (C) 37.5 C 09/27/18 20:41 Heart Rate 114 H 09/27/18 20:41 Respiratory Rate 20 09/27/18 20:41 Blood Pressure 138/75 H 09/27/18 20:41 O2 Sat (%) 96 09/27/18 20:41 O2 Delivery Mode Room Air Allergies/Adverse Reactions: haloperidol [From Haldol] Allergy (Verified 09/27/18 20:39) Medical Decision Making ED Course/Re-evaluation: 9:04 p.m.: I reviewed the patient's old medical records. Recommended admission for large area of cellulitis to left buttock. Will be given IV antibiotics, diagnostic studies will be obtained. Care of patient under supervision of secondary supervising physician Dr Rosario with whom I discussed case. 9:38 p.m.: Consultation with hospitalist Dr. Hood who will admit patient. Doubt necrotizing fasciitis. Doubt abscess. - Data Points Laboratory Results: Laboratory Results 09/27/18 21:03 09/27/18 21:03 09/27/18 09/27/18 09/27/18 21:03 21:03 21:03 WBC 14.41 10^3/uL H 10^3/uL (3.80-9.50) RBC 4.06 10^6/uL L 10^6/uL (4.40-6.38) Hgb 11.8 g/dL L g/dL (13.7-17.5) Hct 36.0 % L % (40.0-51.0) MCV 88.7 fL fL (81.5-99.8) MCH 29.1 pg pg (27.9-34.1) MCHC 32.8 g/dL g/dL (32.4-36.7) RDW 15.6 % H % (11.5-15.2) Plt Count 283 10^3/uL 10^3/uL (150-400) MPV 9.8 fL fL (8.7-11.7) Neut % (Auto) Pending Lymph % (Auto) Pending [place] % (Auto) Pending Eos % (Auto) Pending Baso % (Auto) Pending Nucleat RBC Rel Count Pending Absolute Neuts (auto) Pending Absolute Lymphs (auto) Pending Absolute Monos (auto) Pending Absolute Eos (auto) Pending Absolute Basos (auto) Pending Absolute Nucleated RBC Pending Immature Gran % Pending Immature Gran # Pending Platelet Estimate Pending PT 14.9 SEC SEC (12.0-15.0) INR 1.15 (0.83-1.16) APTT 29.0 SEC SEC (23.0-38.0) VBG Lactic Acid Sodium 136 mEq/L mEq/L (135-145) Potassium 3.6 mEq/L mEq/L (3.5-5.2) Chloride 101 mEq/L mEq/L (97-110) Carbon Dioxide 25 mEq/l mEq/l (22-31) Anion Gap 10 mEq/L mEq/L (6-14) BUN 11 mg/dL mg/dL (7-23) Creatinine 1.1 mg/dL mg/dL (0.7-1.3) Estimated GFR > 60 Glucose 86 mg/dL mg/dL (70-100) Calcium 9.0 mg/dL mg/dL (8.5-10.4) Total Bilirubin 0.7 mg/dL mg/dL (0.1-1.4) Procalcitonin Pending 09/27/18 21:03 WBC RBC Hgb Hct MCV MCH MCHC RDW Plt Count MPV Neut % (Auto) Lymph % (Auto) [place] % (Auto) Eos % (Auto) Baso % (Auto) Nucleat RBC Rel Count Absolute Neuts (auto) Absolute Lymphs (auto) Absolute Monos (auto) Absolute Eos (auto) Absolute Basos (auto) Absolute Nucleated RBC Immature Gran % Immature Gran # Platelet Estimate PT INR APTT VBG Lactic Acid 0.9 mmol/L mmol/L (0.7-2.1) Sodium Potassium Chloride Carbon Dioxide Anion Gap BUN Creatinine Estimated GFR Glucose Calcium Total Bilirubin Procalcitonin Medications Given: Discontinued Medications Hydromorphone HCl (Dilaudid) 1 mg IVP EDNOW ONE Stop: 09/27/18 21:27 Last Admin: 09/27/18 21:27 Dose: 1 mg Cefazolin Sodium/Dextrose (Ancef) 100 mls @ 200 mls/hr IV EDNOW ONE PRN Reason: Protocol Stop: 09/27/18 21:24 Last Admin: 09/27/18 21:18 Dose: 100 mls Sodium Chloride (Ns) 2,000 mls @ 0 mls/hr IV ONCE ONE PRN Reason: Wide Open Stop: 09/27/18 21:05 Last Admin: 09/27/18 21:18 Dose: 2,000 mls Ondansetron HCl (Zofran) 4 mg IVP EDNOW ONE Stop: 09/27/18 21:27 Last Admin: 09/27/18 21:27 Dose: 4 mg Departure - Departure Disposition: [facility] Clinical Impression: Cellulitis of left buttock Condition: Fair
[2018-09-27 21:22] LABS: PLATELET COUNT 283 10^3/uL (150-400)
[2018-09-27] MEDS ORDERED: HYDROmorphONE/DILAUDID 1 MG/ML INJ ONE (21:23)
[2018-09-27] MEDS ORDERED: ONDANSETRON 4 MG/2 ML VIAL ONE (21:24)
[2018-09-27] MEDS ORDERED: ONDANSETRON 4 MG/2 ML VIAL IVP ONE (21:26)
[2018-09-27] MEDS ORDERED: HYDROmorphONE/DILAUDID 2 MG/ML INJ IVP ONE (21:26)
[2018-09-27 21:30] LABS: INR 1.15 (0.83-1.16); PROTIME(PATIENT) 14.9 SEC (12.0-15.0)
[2018-09-27] MEDS ORDERED: ONDANSETRON DISINTEGRATING 4 MG TAB PO PRN (22:10)
[2018-09-27] MEDS ORDERED: ACETAMINOPHEN 325 MG TAB PO PRN (22:10)
[2018-09-27] MEDS ORDERED: ONDANSETRON 4 MG/2 ML VIAL IVP PRN (22:10)
--- NOTE | 2018-09-27 22:51 | PDGENHP ---
History and Physical - Chief Complaint L buttocks pain - History of Present Illness 22 yo M w/ hx of hypogonadism and eczema presents with L buttocks pain. He reports 3-4 days of progressive L buttock pain. Today he developed subjective fevers and chills. The area has become red, swollen, hard, and painful. This presentation is very similar to L buttocks cellulitis in April of this year. He meets sepsis criteria in the ED per HR and WBC. His Tmax while here has been 37.5. At this point he continues to have exquisite tenderness of L buttocks but otherwise is well appearing. Case discussed with Dr. Hood; records reviewed and summarized above. History Information - Allergies/Home Medication List Allergies/Adverse Reactions: haloperidol [From Haldol] Allergy (Verified 09/27/18 20:39) Home Medications: NK [No Known Home Meds] 09/27/18 [Last Taken Unknown] I have personally reviewed and updated: family history, medical history - Past Medical History Additional medical history: Anxiety, depression, attention deficit hyperactivity disorder, hypogonadism on testosterone replacement. - Surgical History Additional surgical history: Tonsillectomy and adenoidectomy. ORIF of the right metacarpal - Family History Additional family history: Patient does not know his family history. - Social History Smoking Status: Never smoked Additional social history: Patient lives with his girlfriend. Cor status-full. Review of Systems Review of Systems: ROS: 10pt was reviewed & negative except for what was stated in HPI & below Physical Exam Physical Exam: Temp Pulse Resp BP Pulse Ox 37.4 C 105 H 16 134/72 H 93 09/27/18 22:21 09/27/18 22:21 09/27/18 22:21 09/27/18 22:21 09/27/18 22:21 Constitutional: obese, uncomfortable Eyes: PERRL, EOMI Ears, Nose, Mouth, Throat: moist mucous membranes, no oral mucosal ulcers Cardiovascular: regular rate and rhythym, no murmur, rub, or gallop Respiratory: no respiratory distress, clear to auscultation Gastrointestinal: normoactive bowel sounds, soft, non-tender abdomen Skin: warm, erythema, induration, other (Warm, erythematous, indurated L buttocks) Musculoskeletal: full muscle strength, muscular tenderness Neurologic: AAOx3, CN II-XII Intact Psychiatric: interacting appropriately, not anxious Lab Data & Imaging Review 09/27/18 21:03 09/27/18 21:03 WBC 14.41 10^3/uL (3.80-9.50) H 09/27/18 21:03 RBC 4.06 10^6/uL (4.40-6.38) L 09/27/18 21:03 Hgb 11.8 g/dL (13.7-17.5) L 09/27/18 21:03 Hct 36.0 % (40.0-51.0) L 09/27/18 21:03 MCV 88.7 fL (81.5-99.8) 09/27/18 21:03 MCH 29.1 pg (27.9-34.1) 09/27/18 21:03 MCHC 32.8 g/dL (32.4-36.7) 09/27/18 21:03 RDW 15.6 % (11.5-15.2) H 09/27/18 21:03 Plt Count 283 10^3/uL (150-400) 09/27/18 21:03 MPV 9.8 fL (8.7-11.7) 09/27/18 21:03 Neut % (Auto) 72.4 % (39.3-74.2) 09/27/18 21:03 Lymph % (Auto) 15.3 % (15.0-45.0) 09/27/18 21:03 [place] % (Auto) 11.3 % (4.5-13.0) 09/27/18 21:03 Eos % (Auto) 0.3 % (0.6-7.6) L 09/27/18 21:03 Baso % (Auto) 0.4 % (0.3-1.7) 09/27/18 21:03 Nucleat RBC Rel Count 0.0 % (0.0-0.2) 09/27/18 21:03 Absolute Neuts (auto) 10.43 10^3/uL (1.70-6.50) H 09/27/18 21:03 Absolute Lymphs (auto) 2.20 10^3/uL (1.00-3.00) 09/27/18 21:03 Absolute Monos (auto) 1.63 10^3/uL (0.30-0.80) H 09/27/18 21:03 Absolute Eos (auto) 0.04 10^3/uL (0.03-0.40) 09/27/18 21:03 Absolute Basos (auto) 0.06 10^3/uL (0.02-0.10) 09/27/18 21:03 Absolute Nucleated RBC 0.00 10^3/uL (0-0.01) 09/27/18 21:03 Immature Gran % 0.3 % (0.0-1.1) 09/27/18 21:03 Immature Gran # 0.04 10^3/uL (0.00-0.10) 09/27/18 21:03 RBC/WBC/PLT Morphology TNP 09/27/18 21:03 Platelet Estimate TNP 09/27/18 21:03 PT 14.9 SEC (12.0-15.0) 09/27/18 21:03 INR 1.15 (0.83-1.16) 09/27/18 21:03 APTT 29.0 SEC (23.0-38.0) 09/27/18 21:03 VBG Lactic Acid 0.9 mmol/L (0.7-2.1) 09/27/18 21:03 Sodium 136 mEq/L (135-145) 09/27/18 21:03 Potassium 3.6 mEq/L (3.5-5.2) 09/27/18 21:03 Chloride 101 mEq/L (97-110) 09/27/18 21:03 Carbon Dioxide 25 mEq/l (22-31) 09/27/18 21:03 Anion Gap 10 mEq/L (6-14) 09/27/18 21:03 BUN 11 mg/dL (7-23) 09/27/18 21:03 Creatinine 1.1 mg/dL (0.7-1.3) 09/27/18 21:03 Estimated GFR > 60 09/27/18 21:03 Glucose 86 mg/dL (70-100) 09/27/18 21:03 Calcium 9.0 mg/dL (8.5-10.4) 09/27/18 21:03 Total Bilirubin 0.7 mg/dL (0.1-1.4) 12/19/18 21:03 Procalcitonin 0.10 ng/mL (0.02-0.10) 09/27/18 21:03 Assessment & Plan Assessment: 22 yo M w/ hx of hypogonadism and eczema presents with cellulitis of L buttocks. Plan: 1. Sepsis - 2/2 cellulitis of L buttocks; meets sepsis criteria per HR and WBC; Tmax 37.5 thus far. SOFA score of 5 on admission. Lactate WNL, which is reassuring. It is unclear why he is having recurring cellulitis in the same area. Hx of hypogonadism and eczema are possible contributors. - Cefazolin 2 g IV q8h - S/p 2 L IVF bolus - CT pelvis w/ contrast to evaluate for possible abscess noting significant induration - Will check HIV with morning labs 2. Hypogonadism - Administers testosterone injections in his deltoid. 3. Anxiety, insomnia - Tells me he struggles with this daily. Diet - Regular Code - Full Ppx - Low risk, ambulate TID Dispo - Admit under observation status
[2018-09-27] MEDS: oxyCODONE IR 5 MG TAB PO PRN ×2 (23:03→23:53)
[2018-09-28] MEDS: MELATONIN 3 MG TAB PO PRN ×2 (00:54→21:00)
[2018-09-28] MEDS: IBUPROFEN 600 MG TAB PO PRN ×3 (00:55→17:36)
[2018-09-28] MEDS: oxyCODONE IR 5 MG TAB PO PRN ×6 (02:56→21:00)
[2018-09-28 05:06] LABS: PLATELET COUNT 258 10^3/uL (150-400)
[2018-09-28] MEDS: ceFAZolin 2 GM/DEXTROSE 100 ML IV SCH ×3 (05:23→21:00)
[2018-09-28 08:23] LABS: HIV TYPE 1 AND 2 NEGATIVE (NEGATIVE)
--- NOTE | 2018-09-28 08:57 | HOSPPROG ---
Hospitalist Progress Note Assessment/Plan: 22 yo M w/ hx of hypogonadism and eczema presents with cellulitis of L buttocks. He had cellulitis this past April. At that time he was giving himself testosterone injections there. He now uses his deltoid area. First encounter, chart reviewed. *Sepsis -tachycardia and fever *left buttock, hip area with cellulitis -reviewed CT of pelvis -shows extensive inflammation w no abscess -he is extremely tender in the left hip area, will cont Cefazolin *Hypogonadism -IM testosterone -discuss w him that topicals often give more consistent release, consider this instead of IM *anxiety, insomnia -chronic *plan: he will need another midnight stay for continued IV abx. He plans to return to [place] in the next few days. He is now living there. Subjective: Seven is very tender over the left hip, trochanter area. Objective: Vital Signs Temp Pulse Resp BP Pulse Ox 36.8 C 104 H 16 122/68 H 90 L 09/28/18 08:19 09/28/18 08:19 09/28/18 08:19 09/28/18 08:19 09/28/18 08:19 Laboratory Results 09/28/18 04:35 09/28/18 04:35 PT 14.9 SEC (12.0-15.0) 09/27/18 21:03 INR 1.15 (0.83-1.16) 09/27/18 21:03 - Physical Exam Constitutional: no apparent distress, appears nourished, obese Eyes: PERRL Ears, Nose, Mouth, Throat: hearing normal Cardiovascular: regular rate and rhythym Respiratory: no respiratory distress Skin: warm, other (left lateral thigh area to the left gluteal area w redness, warmth, very tender) Musculoskeletal: full muscle strength Neurologic: AAOx3 Psychiatric: interacting appropriately ICD10 Worksheet Patient Problems: Problems Problem Status Onset Cellulitis of left buttock Acute Anxiety Acute Benzodiazepine withdrawal Acute Cellulitis Acute
[2018-09-28] MEDS ORDERED: IOPAMIDOL (ISOVUE-300) 100 ML BTL ONE (11:01)
--- NOTE | 2018-09-28 17:43 | ASMTCMCOM ---
CM Note CM Note Notes: Spoke w/RN, pt admitted for buttock cellulitis, he will stay for another night of abx and plans on returning to [place]. Anticipate he will dc when medically stable, CM availble for any changes. DC Plan: Independent Date Signed: 09/28/2018 05:42 PM Electronically Signed By:Nicole Green RN
[2018-09-28] MEDS: NICOTINE 21 MG/24 HR PATCH TD SCH (18:25)
[2018-09-29] MEDS: oxyCODONE IR 5 MG TAB PO PRN ×7 (00:03→20:58)
[2018-09-29] MEDS: IBUPROFEN 600 MG TAB PO PRN (03:15)
[2018-09-29] MEDS: ceFAZolin 2 GM/DEXTROSE 100 ML IV SCH ×3 (05:11→20:59)
--- NOTE | 2018-09-29 10:08 | HOSPPROG ---
Hospitalist Progress Note Assessment/Plan: # L buttocks cellulitis - improving, but not ready for PO abx today - cont ancef # sepsis (leuk, tachy) - d/t cellulitis - resolved # hypogonadism - uses IM testosterone - consider patch # anxiety, insomnia - chronic Subjective: still c/o severe pain in L buttock Objective: Vital Signs Temp Pulse Resp BP Pulse Ox 36.5 C 110 H 18 137/68 H 87 L 09/29/18 07:50 09/29/18 07:50 09/29/18 07:50 09/29/18 07:50 09/29/18 07:50 Laboratory Results 09/28/18 04:35 09/28/18 04:35 PT 14.9 SEC (12.0-15.0) 09/27/18 21:03 INR 1.15 (0.83-1.16) 09/27/18 21:[address] reviewed - Physical Exam Constitutional: no apparent distress, appears nourished Cardiovascular: regular rate and rhythym, no murmur, rub, or gallop, systolic murmur Respiratory: no respiratory distress, no rales or rhonchi, clear to auscultation Gastrointestinal: normoactive bowel sounds, soft, non-tender abdomen, no palpable masses Skin: other (L buttocks with area of induration, ongoing erythema, warmth) ICD10 Worksheet Patient Problems: Problems Problem Status Onset Anxiety Acute Benzodiazepine withdrawal Acute Cellulitis Acute Cellulitis of left buttock Acute
[2018-09-29] MEDS: NICOTINE 21 MG/24 HR PATCH TD SCH (11:16)
[2018-09-29] MEDS ORDERED: ZOLPIDEM TARTRATE 5 MG TAB PO PRN (21:25)
[2018-09-30] MEDS: oxyCODONE IR 5 MG TAB PO PRN ×3 (00:03→07:43)
[2018-09-30] MEDS ORDERED: LORazepam 0.5 MG TAB PO ONE (03:08)
[2018-09-30] MEDS: ceFAZolin 2 GM/DEXTROSE 100 ML IV SCH (06:35)
[2018-09-30 07:53] VITALS: BP 126/77
[2018-09-30] MEDS: NICOTINE 21 MG/24 HR PATCH TD SCH (10:10)
--- NOTE | 2018-09-30 12:11 | GDS ---
ALL DIAGNOSES: 1. Left buttock cellulitis. 2. Sepsis due to cellulitis, which has resolved. 3. Hypogonadism, using intramuscular testosterone. 4. Anxiety and insomnia, which are chronic. HOSPITAL COURSE: This is a 22-year-old man admitted with a left buttock cellulitis. He is requiring IV cefazolin. He had a pelvis CT scan, which showed inflammation but no underlying abscess. Is sig nificantly improved on the day of discharge. He does have an area of approximately 10 cm of indurati on on his left buttocks. Erythema and pain are markedly better, however. His white count had improv ed from 14.4, down to 9.7 after 1 day of antibiotics. He is ready to be switched to oral antibiotics at this point. I have given an additional 7 days of Keflex to take. I have given him strict return precautions, as well as warning signs and symptoms to watch for. Also, given the pain in his buttoc ks, is requiring some Percocet. I have given a prescription for #20 of these. He has requested [facility] prescriptions for both of these. Likely, this is due to his intramuscular injection of testosterone. I have recommended that he consi izzy transdermal testosterone rather than intramuscular. He is discharged in stable condition. He plans to return to [place], where he resides, tomorrow BILLING: I spent more than 30 minutes on the day of discharge coordinating care. /[id number]/MODL
--- NOTE | 2018-09-30 12:35 | ASDISCHSUM ---
Discharge Information Plan Status:Home with No Needs Medically Cleared to Leave:09/29/2018 Discharge Date:09/30/2018 11:17 AM CM D/C Disposition:Home, Routine, Self-Care ADT D/C Disposition:Home, Routine, Self-Care Projected Discharge Date:09/30/2018 11:17 AM Transportation at D/C:Bus Ticket Discharge Delay Reason: Follow-Up Date:09/30/2018 11:17 AM Discharge Slot: Final Diagnosis:Glutteal cellulitis Placement Information Patient Contact Information Contact Name:MEGAN Relationship:Mother Address: Work Phone: City:[place] Phone: [facility]/Zip Code:[place] Email: Financial Information Financial Class:HMO and PPO Plans Primary Plan Desc:[employer] Primary Plan Number:[id number] Secondary Plan Desc:[employer] P[employer] POS HMO SIG ADM Secondary Plan Number:[id number] Assessment Information LACE LACE Length of stay for Answers: 2 days current admission Acuity / Level of Answers: No Care: Did the patient have an inpatient admission? Comorbidities - select Answers: Other Notes: cellulitis all that apply # of Emergency department Answers: 3-4 visits in the last 6 months Social determinants Answers: Mental health diagnosis (anxiety, depression, pers onality disorders, etc.) Score: 9 Date Signed: 09/30/2018 11:23 AM Electronically Signed By:Myranda Villeda [facility] CM Progress Note CM Note CM Note Notes: Spoke w/RN, pt admitted for buttock cellulitis, he will stay for another night of abx and plans on returning to [place]. Anticipate he will dc when medically stable, CM availble for any changes. DC Plan: Independent Date Signed: 09/28/2018 05:42 PM Electronically Signed By:Nicole Green RN Case Management Discharge Plan Note Case Management Discharge Discharge Order Complete? Answers: Yes Patient to Obtain Answers: Independently Medications Transportation Arranged Answers: Bus Tokens Discharge Comments Notes: Spoke with pt in the room. Pt visiting friend in [place]. Plans to take the bus to friend's house and then fly home to [place] where it will be "business as usual". Pt stated he was planning to walk to [facility] and wait for friend to get off work and pick him up. Stated he did not have enough money for a bus ticket. Case Management provided bus voucher to friend's house in [place]. No further CM needs noted at this time. Date Signed: 09/30/2018 11:26 AM Electronically Signed By:Myranda Villeda Intervention Information
--- NOTE | 2018-09-30 12:40 | ASMTLACE ---
TANYA Length of stay for Answers: 2 days current admission Acuity / Level of Answers: No Care: Did the patient have an inpatient admission? Comorbidities - select Answers: Other Notes: cellulitis all that apply # of Emergency department Answers: 3-4 visits in the last 6 months Social determinants Answers: Mental health diagnosis (anxiety, depression, pers onality disorders, etc.) Score: 9 Date Signed: 09/30/2018 11:23 AM Electronically Signed By:Myranda Villeda
--- NOTE | 2018-09-30 12:41 | ASMTDCNOTE ---
Case Management Discharge Discharge Order Complete? Answers: Yes Patient to Obtain Answers: Independently Medications Transportation Arranged Answers: Bus Tokens Discharge Comments Notes: Spoke with pt in the room. Pt visiting friend in [place]. Plans to take the bus to friend's house and then fly home to [place] where it will be "business as usual". Pt stated he was planning to walk to [place] and wait for friend to get off work and pick him up. Stated he did not have enough money for a bus ticket. Case Management provided bus voucher to friend's house in [place]. No further CM needs noted at this time. Date Signed: 09/30/2018 11:26 AM Electronically Signed By:Myranda Villeda
== END 2018-09-30 11:17 | disposition home or self-care (01) ==
LOC: F3E 22:18
PROVIDERS: ADMIT Internal Medicine; ATTEND Student in an Organized Health Care Education/Training Program
DX: L03.317 Cellulitis of buttock (principal); A41.9 Sepsis, unspecified organism; E29.1 Testicular hypofunction; F41.9 Anxiety disorder, unspecified; F51.04 Psychophysiologic insomnia; Z79.890 Hormone replacement therapy
CPT/HCPCS: 72193; 96374; 96375; 96376; 99285; G0378; J0690; J1170; J2405; Q9967